=== PATIENT | male | born 1955 | race Caucasian/White ===

== ENCOUNTER 2016-11-27 17:20 | Emergency (ER) | payer OTHER ==
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
== END 2016-11-27 18:45 | disposition short-term general hospital (02) ==
LOC: ED 17:20
DX: S22.49XA Multiple fractures of ribs, unspecified side, initial encounter for closed fracture (principal); J93.9 Pneumothorax, unspecified; R06.00 Dyspnea, unspecified; R00.0 Tachycardia, unspecified; E66.01 Morbid (severe) obesity due to excess calories; V89.2XXA Person injured in unspecified motor-vehicle accident, traffic, initial encounter
CPT/HCPCS: 32551; 51702; 71010; 80053; 82150; 82550; 85025; 86850; 86900; 86901; 86920; 99285; G0390; G0480